=== PATIENT | female | born 1940 | race Caucasian/White ===

== ENCOUNTER 2019-05-07 16:25 | Emergency (ER) | payer OTHER ==
[2019-05-07 17:09] LABS: Urine Bacteria NONE SEEN /HPF (<20); Urine Culture Reflex Order NOT NEEDED; Urine RBC NONE SEEN /HPF (NONE SEEN)
--- NOTE | 2019-05-07 17:39 | EDPHYS ---
Physician Documentation [facility] Name: Peggy Blackwell Age: 79 yrs Sex: Female : 1940 Arrival Date: 05/07/2019 Time: 16:29 Bed 13 Private MD: ANGEL Physician Mitesh Cherry HPI: 05/07 16:53 This 79 yrs old Female presents to ER via Ambulatory with complaints of jr8 Urinary Problem, InQuicker. 16:53 The patient presents with urinary symptoms, dysuria, frequency. Onset: The jr8 symptoms/episode began/occurred gradually, 2 day(s) ago. Modifying factors: The symptoms are alleviated by nothing, the symptoms are aggravated by urinating. Associated signs and symptoms: The patient has no apparent associated signs or symptoms. Severity of symptoms: At their worst the symptoms were mild, in the emergency department the symptoms are unchanged. The patient has experienced similar episodes in the past, a few times. The patient has been recently seen by a physician:. Patient stated that she had a bad bout of urinary tract infections over a year ago and had been treated by a urologist. Had been doing fine until recently. Started to have UTI's again. Last treated about 10 days ago. Started with pain again yesterday. Historical: - Allergies: 16:39 PENICILLINS; jl7 - Home Meds: 16:39 [place] Thyroid 60 mg Oral tab [Active]; enalapril maleate 5 mg Oral tab [Active]; jl7 donepezil 5 mg oral tab [Active]; Baclofen Oral [Active]; alprazolam 0.25 mg Oral tab [Active]; ibandronate 150 mg oral tab [Active]; aspirin 81 mg Oral chew [Active]; Zofran Oral [Active]; promethazine Oral [Active]; - PMHx: 16:39 Dementia; Hypothyroidism; Hypertension; jl7 - Immunization history:: Adult Immunizations up to date. - Social history:: Smoking status: Patient/guardian denies using tobacco. - Ebola Screening: : No symptoms or risks identified at this time. ROS: 16:53 Eyes: Negative for injury, pain, redness, and discharge, ENT: Negative for injury, jr8 pain, and discharge, Neck: Negative for injury, pain, and swelling, Cardiovascular: Negative for chest pain, palpitations, and edema, Respiratory: Negative for shortness of breath, cough, wheezing, and pleuritic chest pain, Abdomen/GI: Negative for abdominal pain, nausea, vomiting, diarrhea, and constipation, Back: Negative for injury and pain, MS/Extremity: Negative for injury and deformity, Skin: Negative for injury, rash, and discoloration, Neuro: Negative for headache, weakness, numbness, tingling, and seizure. 16:53 : Positive for urinary symptoms, burning with urination. Exam: 16:53 Eyes: Pupils equal round and reactive to light, extra-ocular motions intact. Lids and jr8 lashes normal. Conjunctiva and sclera are non-icteric and not injected. Cornea within normal limits. Periorbital areas with no swelling, redness, or edema. ENT: Nares patent. No nasal discharge, no septal abnormalities noted. Tympanic membranes are normal and external auditory canals are clear. Oropharynx with no redness, swelling, or masses, exudates, or evidence of obstruction, uvula midline. Mucous membranes moist. Neck: Trachea midline, no thyromegaly or masses palpated, and no cervical lymphadenopathy. Supple, full range of motion without nuchal rigidity, or vertebral point tenderness. No Meningismus. Cardiovascular: Regular rate and rhythm with a normal S1 and S2. No gallops, murmurs, or rubs. Normal PMI, no JVD. No pulse deficits. Respiratory: Lungs have equal breath sounds bilaterally, clear to auscultation and percussion. No rales, rhonchi or wheezes noted. No increased work of breathing, no retractions or nasal flaring. Abdomen/GI: Soft, non-tender, with normal bowel sounds. No distension or tympany. No guarding or rebound. No evidence of tenderness throughout. Back: No spinal tenderness. No costovertebral tenderness. Full range of motion. Skin: Warm, dry with normal turgor. Normal color with no rashes, no lesions, and no evidence of cellulitis. MS/ Extremity: Pulses equal, no cyanosis. Neurovascular intact. Full, normal range of motion. Neuro: Awake and alert, GCS 15, oriented to person, place, time, and situation. Cranial nerves II-XII grossly intact. Motor strength 5/5 in all extremities. Sensory grossly intact. Cerebellar exam normal. Normal gait. 17:36 : Pelvic Exam: External exam: no appreciated Bartholin's cyst, no erythema, not jr8 excoriated, no evidence of foreign body, no lesions, no ulcerations, no warts seen, discharge, is not appreciated, the nurse was present for the exam, Bladder: is normal, non-distended, non-tender. Vital Signs: 16:39 BP 161 / 80; Pulse 85; Resp 19 S; Temp 98.2(O); Pulse Ox 97% on R/A; Weight 48.53 kg jl7 (R); Height 5 ft. 4 in. (162.56 cm) (R); Pain 5/10; 16:39 Body Mass Index 18.37 (48.53 kg, 162.56 cm) jl7 MDM: 16:42 Patient medically screened. jr8 17:36 Data reviewed: vital signs, nurses notes, lab test result(s). Data interpreted: Pulse jr8 oximetry: on room air is 97 %. Interpretation: normal. Counseling: I had a detailed discussion with the patient and/or guardian regarding: the historical points, exam findings, and any diagnostic results supporting the discharge/admit diagnosis, lab results, the need for outpatient follow up, a urologist, to return to the emergency department if symptoms worsen or persist or if there are any questions or concerns that arise at home. ED course: Discussed with patient and son that at this time Urology referral is needed again. Patient is maxed out on estradiol cream and took Diflucan for possible yeast infection. No external vaginal lesions noted. Microscopic exam of urine unremarkable. Family is good with this and will f/u . 05/07 16:43 Order name: Urine Microscopic Only; Complete Time: 17:20 jr8 05/07 16:57 Order name: Urine Dipstick--Ancillary (enter results) em1 05/07 16:43 Order name: Urine Dipstick-Ancillary (obtain specimen); Complete Time: 16:53 jr8 Administered Medications: No medications were administered Disposition: 05/08 10:32 Co-signature as Attending Physician, Mitesh Cherry MD I agree with the assessment and tori plan of care. Disposition: 05/07/19 17:38 Discharged to Home. Impression: Dysuria, Vaginitis, vulvitis and vulvovaginitis in diseases classified elsewhere. - Condition is Stable. - Discharge Instructions: Dysuria, Vaginitis. - Medication Reconciliation Form, Thank You Letter, Antibiotic Education, Prescription Opioid Use form. - Follow up: Abhinav Mcguire MD; When: 2 - 3 days; Reason: Recheck today's complaints, Continuance of care, Re-evaluation by your physician. - Problem is new. - Symptoms are unchanged. Signatures: Dispatcher [employer] EDMitesh Garcia MD MD cha Williams, Irene RN RN iw Himanshu Hightower PA PA jr8 Tara Roldan RN RN jl7 Corrections: (The following items were deleted from the chart) 05/07 18:15 17:38 05/07/2019 17:38 Discharged to Home. Impression: Dysuria; Vaginitis, vulvitis and iw vulvovaginitis in diseases classified elsewhere. Condition is Stable. Forms are Medication Reconciliation Form, Thank You Letter, Antibiotic Education, Prescription Opioid Use. Follow up: Abhinav Mcguire; When: 2 - 3 days; Reason: Recheck today's complaints, Continuance of care, Re-evaluation by your physician. Problem is new. Symptoms are unchanged. jr8
--- NOTE | 2019-05-07 17:39 | ER ---
Nurse's Notes [facility] Name: Peggy Blackwell Age: 79 yrs Sex: Female : 1940 Arrival Date: 05/07/2019 Time: 16:29 Bed 13 Private MD: Diagnosis: Dysuria;Vaginitis, vulvitis and vulvovaginitis in diseases classified elsewhere Presentation: 05/07 16:31 Presenting complaint: Patient states: Was treated for a UTI 2 weeks ago, finished jl7 antibiotics on 04/27/19 and it started burning real bad again yesterday. Also reports intermittent LLQ abdominal pain that started yesterday as well, reports last BM today and normal. Transition of care: patient was not received from another setting of care. Onset of symptoms was May 06, 2019. Risk Assessment: Do you want to hurt yourself or someone else? Patient reports no desire to harm self or others. Initial Sepsis Screen: Does the patient meet any 2 criteria? No. Patient's initial sepsis screen is negative. Does the patient have a suspected source of infection? Yes: Dysuria/Frequency/Urgency/UTI. Care prior to arrival: None. 16:31 Method Of Arrival: Ambulatory 7 16:31 Acuity: KOTA 3 jl7 Triage Assessment: 16:39 General: Appears in no apparent distress. uncomfortable, Behavior is calm, cooperative, jl7 appropriate for age. Pain: Complains of pain in left lower quadrant Pain currently is 5 out of 10 on a pain scale. Historical: - Allergies: 16:39 PENICILLINS; jl7 - Home Meds: 16:39 [place] Thyroid 60 mg Oral tab [Active]; enalapril maleate 5 mg Oral tab [Active]; jl7 donepezil 5 mg oral tab [Active]; Baclofen Oral [Active]; alprazolam 0.25 mg Oral tab [Active]; ibandronate 150 mg oral tab [Active]; aspirin 81 mg Oral chew [Active]; Zofran Oral [Active]; promethazine Oral [Active]; - PMHx: 16:39 Dementia; Hypothyroidism; Hypertension; jl7 - Immunization history:: Adult Immunizations up to date. - Social history:: Smoking status: Patient/guardian denies using tobacco. - Ebola Screening: : No symptoms or risks identified at this time. Screenin:15 Abuse screen: Denies threats or abuse. Denies injuries from another. Nutritional aj1 screening: No deficits noted. Tuberculosis screening: No symptoms or risk factors identified. Assessment: 17:15 General: Appears in no apparent distress. comfortable, Behavior is calm, cooperative, aj1 appropriate for age. Pain: Denies pain. Neuro: Level of Consciousness is awake, alert, obeys commands. Cardiovascular: Patient's skin is warm and dry. Respiratory: Airway is patent Respiratory effort is even, unlabored, Respiratory pattern is regular, symmetrical. GI: No signs and/or symptoms were reported involving the gastrointestinal system. : Reports burning with urination. EENT: No signs and/or symptoms were reported regarding the EENT system. Derm: No signs and/or symptoms reported regarding the dermatologic system. Skin is pink, warm \T\ dry. normal. Musculoskeletal: No signs and/or symptoms reported regarding the musculoskeletal system. Circulation, motion, and sensation intact. 18:15 Reassessment: Patient appears in no apparent distress at this time. No changes from aj1 previously documented assessment. Patient and/or family updated on plan of care and expected duration. Pain level reassessed. Patient is alert, oriented x 3, equal unlabored respirations, skin warm/dry/pink. Vital Signs: 16:39 BP 161 / 80; Pulse 85; Resp 19 S; Temp 98.2(O); Pulse Ox 97% on R/A; Weight 48.53 kg jl7 (R); Height 5 ft. 4 in. (162.56 cm) (R); Pain 5/10; 16:39 Body Mass Index 18.37 (48.53 kg, 162.56 cm) jl7 ED Course: 16:29 Patient arrived in ED. as 16:36 Triage completed. jl7 16:39 Arm band placed on right wrist. jl7 16:42 Himanshu Hightower PA is PHCP. jr8 16:42 Mitesh Cherry MD is Attending Physician. jr8 16:53 Urine Microscopic Only Sent. mh5 16:58 Urine collected: clean catch specimen, clear. mh5 16:58 Urine Dipstick--Ancillary (enter results) Sent. mh5 17:15 Patient has correct armband on for positive identification. aj1 17:15 No provider procedures requiring assistance completed. aj1 17:38 Abhinav Mcguire MD is Referral Physician. jr8 18:15 Reyna Holder, RN is Primary Nurse. aj1 18:15 Patient did not have IV access during this emergency room visit. aj1 Administered Medications: No medications were administered Outcome: 17:38 Discharge ordered by . jr8 18:15 Patient left the ED. iw 18:15 Discharged to home ambulatory. aj1 18:15 Condition: good 18:15 Discharge instructions given to patient, family, Instructed on discharge instructions, follow up and referral plans. Demonstrated understanding of instructions. Signatures: Reyna Holder, RN RN aj1 Verona Garcia Irene, RN RN Himanshu Hightower PA PA jr8 Courtney Garcia [facility] Tara Roldan RN RN jl7
[2019-05-07 20:10] LABS: Urine Blood TRACE (NEG); Urine Glucose NEGATIVE (NEG); Urine Protein NEGATIVE (NEG); Urine Specific Gravity 1.015 (1.005-1.030)
[2019-05-07 21:28] VITALS: BP 161/80; TEMP 98.2; O2SAT 97
== END 2019-05-07 18:15 | disposition home or self-care (01) ==
LOC: ER 16:25
DX: R30.0 Dysuria (principal); N77.1 Vaginitis, vulvitis and vulvovaginitis in diseases classified elsewhere; I10 Essential (primary) hypertension; E03.9 Hypothyroidism, unspecified; F03.90 Unspecified dementia, unspecified severity, without behavioral disturbance, psychotic disturbance, mood disturbance, and anxiety; Z79.82 Long term (current) use of aspirin; Z88.0 Allergy status to penicillin
CPT/HCPCS: 81003; 81015; 99283